=== PATIENT | female | born 1990 | race Caucasian/White ===

== ENCOUNTER 2024-07-18 08:03 | Outpatient (CLI) | payer OTHER, SELFPAY ==
--- NOTE | 2024-07-18 08:15 | CRLHL7_ITS ---
For Patients: As a result of the Cures Act, medical imaging exams and procedure reports are released immediately into your electronic medical record. You may view this report before your referring provider. If you have questions, please contact your health care provider. INDICATION: First trimester scan, establish dates. COMPARISON: None. TECHNIQUE: Real-time saha-scale imaging of the pelvis was performed. FINDINGS: Sonographic imaging demonstrates a single living intrauterine gestation. The embryo demonstrates a regular cardiac rate measuring 173 beats per minute. The embryo`s crown-rump length measurement of 2.6 cm corresponds to a gestational age of 9 weeks 3 days with a sonographic due date of 02/17/2025. There is a normal-appearing yolk sac. There are no gross abnormalities noted within the embryo at this early state of development. The gestational sac has a normal appearance. There is a 5 x 8 x 5 millimeter perigestational hemorrhage. The amount of fluid within the sac appears appropriate for gestational age. The cervix is closed. The myometrium appears normal. The ovaries are not visualized. There are no suspicious fluid collections noted in the cul-de-sac. IMPRESSION: Single living intrauterine with sonographic gestational age 9 weeks 3 days and a sonographic due date of 02/17/2025. Small subchorionic hemorrhage measuring 5 x 8 x 5 millimeters. Dictated by Aaron Card MD @ 07/18/2024 9:59:11 AM (Electronically Signed)
== END 2024-07-18 08:04 | disposition home or self-care (01) ==
LOC: US 08:04
PROVIDERS: Visit Provider Physician Assistant
DX: Z34.91 Encounter for supervision of normal pregnancy, unspecified, first trimester (principal); O20.9 Hemorrhage in early pregnancy, unspecified; Z3A.09 9 weeks gestation of pregnancy
CPT/HCPCS: 76801; 76817

== ENCOUNTER 2024-07-18 09:14 | Outpatient (CLI) | payer OTHER, SELFPAY | END 2024-07-18 09:15 | disposition home or self-care (01) | PROVIDERS: Visit Provider Physician Assistant | DX: Z34.81 Encounter for supervision of other normal pregnancy, first trimester (principal) | CPT/HCPCS: 86592; 86703; 86704; 86706; 86762; 86787; 86803; 86850; 86900; 86901; 87086; 87340 ==

== ENCOUNTER 2024-10-11 09:55 | Outpatient (CLI) | payer OTHER, SELFPAY ==
--- NOTE | 2024-10-11 10:15 | CRLHL7_ITS ---
For Patients: As a result of the Century Cures Act, medical imaging exams and procedure reports are released immediately into your electronic medical record. You may view this report before your referring provider. If you have questions, please contact your health care provider. INDICATION: Evaluate anatomy. COMPARISON: 07/18/2024 TECHNIQUE: Real time saha scale imaging of the fetus was performed as well as color Doppler analysis of the umbilical vessels. FINDINGS: Sonographic imaging demonstrates a single living intrauterine gestation. Fetus demonstrates a regular cardiac rate of 147 beats per minute. Fetus has a breech position. The placenta lies anteriorly without evidence of placenta previa. Edge of the placenta located 4.1 cm from the internal cervical os. Amniotic fluid volume appears normal. Single deepest vertical pocket: 4.5 cm. The cervix is closed and measures 4.3 cm in length. The composite ultrasound gestational age is calculated at 21 weeks 3 days with an estimated sonographic due date of 02/18/2025. The estimated weight is 428 grams which lies at the 40th %. The following biometric measurements were obtained: Biparietal diameter: 4.9 cm/21 weeks 0 days 24th% Head circumference: 18.8 cm/21 weeks 1 day 20th% Abdominal circumference: 17.1 cm/22 weeks 0 days 58th% Femur length: 3.5 cm/21 weeks 0 days 22nd% The HC/AC ratio measures: 1.10 range (1.06-1.24) On anatomic survey, there is a normal appearance of the cerebral ventricles, cavum septi pellucidi, cisterna magna and cerebellum. The nose, lips, and facial profile appear normal. The cervical, thoracic and lumbar spine are well visualized and appear normal. There is a normal four-chamber heart view and the left and right ventricular outflow tracts appear normal. The diaphragm and stomach appear normal. The kidneys and bladder also appear normal. There is a normal three-vessel cord and cord insertion site. The four extremities appear normal. IMPRESSION: Normal OB ultrasound exam with concordance of clinical and sonographic dating. No intrinsic abnormalities noted on anatomic survey. Dictated by Aaron Card MD @ 10/11/2024 11:36:25 AM (Electronically Signed)
== END 2024-10-11 09:56 | disposition home or self-care (01) ==
LOC: US 09:55
PROVIDERS: Visit Provider Advanced Practice Midwife
DX: Z34.92 Encounter for supervision of normal pregnancy, unspecified, second trimester (principal); Z3A.21 21 weeks gestation of pregnancy
CPT/HCPCS: 76805

== ENCOUNTER 2024-11-15 08:10 | Outpatient (CLI) | payer OTHER, SELFPAY | END 2024-11-15 08:11 | disposition home or self-care (01) | LOC: NFLDREF 08:11 | PROVIDERS: Visit Provider Advanced Practice Midwife | DX: Z34.92 Encounter for supervision of normal pregnancy, unspecified, second trimester (principal); Z3A.26 26 weeks gestation of pregnancy | CPT/HCPCS: 86592 ==

== ENCOUNTER 2025-01-17 10:26 | Outpatient (CLI) | payer OTHER, SELFPAY ==
[2025-01-18 15:01] LABS: Strep B DNA Probe Negative (Negative)
[2025-01-18 19:54] LABS: Strep B Susceptibility Needed? No
== END 2025-01-17 10:27 | disposition home or self-care (01) ==
LOC: NFLDREF 10:26
PROVIDERS: Visit Provider Midwife
DX: Z34.93 Encounter for supervision of normal pregnancy, unspecified, third trimester (principal); Z3A.35 35 weeks gestation of pregnancy
CPT/HCPCS: 87081; 87653

== ENCOUNTER 2025-02-06 23:37 | Inpatient (IN) | payer OTHER, SELFPAY ==
[2025-02-06 23:35] VITALS: BP 110/70; PULSE 88
[2025-02-06 23:45] VITALS: RESP 16; TEMP 36.6; BMI 31.7
--- NOTE | 2025-02-06 23:48 | W.PM.LDBA ---
Subjective History of Present Illness Date Seen: 02/06/25 Narrative: Patient is being admitted to Labor and Delivery for spontaneous onset of labor. She is a 34 year old at 38 3/7 weeks gestation. Her full history and physical was dictated by Veronika Durand CNM on 01/27/2025. Please see this for details. See below for specific issues Specific Issues/Plans : Caleb Son: Hubert. It is another boy! 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 States wasn't diagnosed with a hemorrhage. # Varicose Veins, right side but has small ones on left Painful at times Encouraged V-support, compression, ice packs, or tucks Imaging:? 1st trimester: 07/18/2024: ?Single living intrauterine with sonographic gestational age 9 weeks 3 days and a sonographic due date of 02/17/2025. Small subchorionic hemorrhage measuring 5 x 8 x 5 millimeters.?? Anatomy scan: 10/11/2024: Normal OB ultrasound exam with concordance of clinical and sonographic dating. No intrinsic abnormalities noted on anatomic survey.?? Flu: Declined COVID: Declined Tdap: Declined OB - Problem Based A/P Additional Plan (1) Spontaneous onset of labor: Status: Acute (2) Supervision of other normal : Status: Acute Plan ASSESSMENT:?? 34 at 38 3/7 weeks gestation?? complicated by:??Vulvar varicosities Labor type: Spontaneous, Early labor?? Category 1 FHR pattern.??? Labor complicated by: none?? GBS negative? PLAN:?? 1. Routine intrapartum cares as ordered. Continue with expectant management?? 2. Monitoring per policy, continuous 3. Planning medicated . Candidate for analgesia of choice.??? 4. Patient encouraged to reposition and ambulate to promote physiologic labor and .?? 5. Anticipate ? OB Result Labs Blood Type: O (+) positive Rubella: immune RPR/VDLR: nonreactive GBS Status: negative HBsAG: negative OB Exam Physical Exam Vital signs: Temp Pulse Resp BP 97.9 F 88 16 110/70 02/06/25 23:45 02/06/25 23:35 02/06/25 23:45 02/06/25 23:35 Narrative: Vitals Reviewed Constitutional:? Alert and oriented x3 HEENT:? Normocephalic, atraumatic Neck:? Supple Lungs:? Clear to auscultation bilaterally Heart:? Regular rate and rhythm, no murmur, rub or gallop Abdomen:? Soft, nontender, and gravid. Vertex by Sukhdev's, confirmed with cervical exam which I did in clinic earlier today. Extremities:? No edema or erythema Cervix: 5 cm/70%/-1 station/per nursing NST: 125 bpm/moderate variability/accelerations present/decelerations absent/contractions q 4 min palpating moderately
[2025-02-06] MEDS: LACTATED RINGERS 1000 ML 1,000 ML 1100 ML IV (23:55)
[2025-02-07] VITALS (66 sets, daily range): BP systolic 100–134; BP diastolic 56–84; PULSE 59–103; RESP 16–18; TEMP 36.5–36.9; O2SAT 97–100
[2025-02-07 00:02] LABS: Basophils Percent Auto 0.2 % (0.0-3.0); Hematocrit 38.7 % (33.0-51.0); Hemoglobin* 13.4 gm/dL (12.0-16.0); Immature Granulocytes Pct Auto 1.3 %; Lymphocytes Percent Auto 18.7 % (20-44); Mean Corpuscular HGB Conc 35 gm/dL (32-36); Mean Corpuscular Hemoglobin 32 pg (26-34); Mean Corpuscular Volume 91 fL (80-100); Monocytes Percent Auto 11.3 % (0.0-11.0); Neutrophils Percent Auto 67.5 % (42.0-72.0); Platelet Count* 252 K/uL (140-440); RDW Coefficient of Variation % 14.2 % (11.5-15.5); Red Blood Count 4.26 m/uL (4.00-5.20)
[2025-02-07 00:06] LABS: Slide Review Reflex No
[2025-02-07] MEDS: LIDOCAINE 2% (PF) 5 ML VIAL EPIDURAL (00:37)
[2025-02-07] MEDS: ROPIVACAINE 0.2% 100 ml 100 ML 12 MG EPIDURAL (00:47)
--- NOTE | 2025-02-07 00:56 | P.ANBPRC_ITS ---
[facility] Medical History Attention deficit disorder (05/31/10) ?F98.8 - Other specified behavioral and emotional disorders with onset usually occurring in childhood and adolescence (ICD-10) Spontaneous vaginal delivery (03/17/21) ?O80 - Encounter for full-term uncomplicated delivery (ICD-10) History of abnormal cervical Pap smear ?Z87.42 - Personal history of other diseases of the female genital tract (ICD-10) Surgical History History of wisdom tooth extraction ?K08.409 - Partial loss of teeth, unspecified cause, unspecified class (ICD- 10) Family History Mother Thyroid disease Aunt Thyroid disease Grandmother Ovarian cancer Osteoporosis Father Skin cancer Maternal Grandfather Lung cancer Paternal Grandfather Prostate cancer Paternal Grandmother Alzheimers disease Social History Narrative: Occupation: Did not indicate. Marital status: . Catholic/cultural needs: no. Chemical or radiation exposure: no. Pre- tobacco use: no. Pre- alcohol use: no. Current tobacco use: no. Current alcohol use: no. Recreational drug use: no. Dietary restrictions: no. Blood transfusion acceptable in an emergency: yes. PSYCHOSOCIAL HISTORY: History of depression or currently depressed: Denies. Current or past physical, emotional, or sexual mistreatment: Denies. Problems that will make it hard to make it to appointments: Denies. What is your current living situation?: I presently have a place to live Problems where you live: no known problems In the past 12 months, utilities in danger of being shut off: no In past 12 months, lack of transportation kept you from medical appts, meetings, work, or getting things needed for daily living: no In the past 12 mos, have been you worried that your food would run out before you had money to buy more?: never true In the past 12 mos, the food you bought just didn't last and you didn't have money to buy more?: never true Smoking Status: Never smoker How often does anyone, including family, friends and others, physically hurt you : never How often does anyone, including family, friends and others, insult or talk down to you: never How often does anyone, including family, friends and others, threaten you with harm: never How often does anyone, including family, friends and others, scream or curse at you: never Meds Home Medications and Allergies Home Medications ?Medication ?Instructions ?Recorded ?Confirmed ?Type [id number] 3-fat com #1 27 cap PO 07/18/24 02/06/25 History mg-1 mg-300 mg capsule Allergies Allergy/AdvReac Type Severity Reaction Status Date / Time amoxicillin Allergy Unknown Rash Verified 02/06/25 08:49 Penicillins Allergy Unknown Unknown Verified 02/06/25 08:49 Results Labs Labs: Laboratory Results - last 24 hr 02/06/25 23:55 WBC 13.50 H RBC 4.26 Hgb 13.4 Hct 38.7 MCV 91 MCH 32 MCHC 35 RDW Coeff of Ronnie 14.2 Plt Count 252 Neut % (Auto) 67.5 Lymph % (Auto) 18.7 L [place] % (Auto) 11.3 H Eos % (Auto) 1.0 Baso % (Auto) 0.2 Neut # (Auto) 9.10 H Lymph # (Auto) 2.50 [place] # (Auto) 1.50 H Eos # (Auto) 0.10 Baso # (Auto) 0.00 Abs Immat Gran (auto) 0.20 Imm/Tot Granulo (auto) 1.3 Vital Signs Vital Signs: Last Vital Signs Temp 97.9 F 02/06/25 23:45 Pulse 89 02/07/25 00:54 Resp 16 02/06/25 23:45 BP 115/68 02/07/25 00:54 Pulse Ox 99 02/07/25 00:54 Weight: 83.915 kg Height: 162.56 cm Anesthesia Procedures Epidural Insertion Patient Location: OB Start Time: 00:00 Stop Time: 01:00 Start Date: 02/07/25 Stop Date: 02/07/25 Reason for Block: procedure for pain Patient Position: sitting Performed By: Carol Ruiz Preanesthetic Checklist: IV checked, site marked, risks and benefits discussed, monitors and equipment checked, pre-op evaluation, timeout performed and anesthesia consent Prep: chlorhexidine gluconate Monitoring: blood pressure monitoring, continuous pulse oximetry and heart rate Approach: midline Vertebral Space: lumbar (1-5) Epidural Technique: RHODA saline Needle Type: Tuohy needle Injection Technique: continuous catheter Needle gauge: 17 Needle Length (cm): 10 cm Needle Insertion Depth (cm): 6 Catheter Gauge: 19 Catheter Type: multi-orifice Catheter at skin depth (cm): 15 Test Dose Result: negative and lidocaine 1.5% with epinephrine 1 to 200,000
[2025-02-07] MEDS: LACTATED RINGERS 1000 ML 1,000 ML 120 ML IV (01:02)
[2025-02-07] MEDS: ONDANSETRON 2 MG/ML inj 4 MG IV (01:24)
--- NOTE | 2025-02-07 01:46 | P.ANBPRC_ITS ---
[facility] Medical History Attention deficit disorder (05/31/10) ?F98.8 - Other specified behavioral and emotional disorders with onset usually occurring in childhood and adolescence (ICD-10) Spontaneous vaginal delivery (03/17/21) ?O80 - Encounter for full-term uncomplicated delivery (ICD-10) History of abnormal cervical Pap smear ?Z87.42 - Personal history of other diseases of the female genital tract (ICD-10) Surgical History History of wisdom tooth extraction ?K08.409 - Partial loss of teeth, unspecified cause, unspecified class (ICD- 10) Family History Mother Thyroid disease Aunt Thyroid disease Grandmother Ovarian cancer Osteoporosis Father Skin cancer Maternal Grandfather Lung cancer Paternal Grandfather Prostate cancer Paternal Grandmother Alzheimers disease Social History Narrative: Occupation: Did not indicate. Marital status: . Zoroastrianism/cultural needs: no. Chemical or radiation exposure: no. Pre- tobacco use: no. Pre- alcohol use: no. Current tobacco use: no. Current alcohol use: no. Recreational drug use: no. Dietary restrictions: no. Blood transfusion acceptable in an emergency: yes. PSYCHOSOCIAL HISTORY: History of depression or currently depressed: Denies. Current or past physical, emotional, or sexual mistreatment: Denies. Problems that will make it hard to make it to appointments: Denies. What is your current living situation?: I presently have a place to live Problems where you live: no known problems In the past 12 months, utilities in danger of being shut off: no In past 12 months, lack of transportation kept you from medical appts, meetings, work, or getting things needed for daily living: no In the past 12 mos, have been you worried that your food would run out before you had money to buy more?: never true In the past 12 mos, the food you bought just didn't last and you didn't have money to buy more?: never true Smoking Status: Never smoker How often does anyone, including family, friends and others, physically hurt you : never How often does anyone, including family, friends and others, insult or talk down to you: never How often does anyone, including family, friends and others, threaten you with harm: never How often does anyone, including family, friends and others, scream or curse at you: never Meds Home Medications and Allergies Home Medications ?Medication ?Instructions ?Recorded ?Confirmed ?Type [id number]-[id number]-omega 3-fat com #1 27 cap PO 07/18/24 02/06/25 History mg-1 mg-300 mg capsule Allergies Allergy/AdvReac Type Severity Reaction Status Date / Time amoxicillin Allergy Unknown Rash Verified 02/06/25 08:49 Penicillins Allergy Unknown Unknown Verified 02/06/25 08:49 Results Labs Labs: Laboratory Results - last 24 hr 02/06/25 23:55 WBC 13.50 H RBC 4.26 Hgb 13.4 Hct 38.7 MCV 91 MCH 32 MCHC 35 RDW Coeff of Ronnie 14.2 Plt Count 252 Neut % (Auto) 67.5 Lymph % (Auto) 18.7 L [place] % (Auto) 11.3 H Eos % (Auto) 1.0 Baso % (Auto) 0.2 Neut # (Auto) 9.10 H Lymph # (Auto) 2.50 [place] # (Auto) 1.50 H Eos # (Auto) 0.10 Baso # (Auto) 0.00 Abs Immat Gran (auto) 0.20 Imm/Tot Granulo (auto) 1.3 Blood Type O Positive Antibody Screen NEGATIVE Vital Signs Vital Signs: Last Vital Signs Temp 97.9 F 02/06/25 23:45 Pulse 81 02/07/25 01:45 Resp 16 02/06/25 23:45 BP 113/66 02/07/25 01:45 Pulse Ox 98 02/07/25 01:44 Weight: 83.915 kg Height: 162.56 cm Anesthesia Procedures Epidural Insertion Patient Location: OB Start Time: 01:00 Stop Time: 02:00 Start Date: 02/07/25 Stop Date: 02/07/25 Reason for Block: procedure for pain Patient Position: sitting Performed By: Carol Ruiz Preanesthetic Checklist: IV checked, risks and benefits discussed, surgical consent, monitors and equipment checked, pre-op evaluation, timeout performed and anesthesia consent Prep: chlorhexidine gluconate Monitoring: blood pressure monitoring, continuous pulse oximetry and heart rate Approach: midline Vertebral Space: lumbar (1-5) Epidural Technique: RHODA saline Needle Type: Tuohy needle Injection Technique: continuous catheter Needle gauge: 17 Needle Length (cm): 10 cm Needle Insertion Depth (cm): 7 Catheter Gauge: 19 Catheter Type: multi-orifice Catheter at skin depth (cm): 17 Test Dose Result: negative and lidocaine 1.5% with epinephrine 1 to 200,000
--- NOTE | 2025-02-07 02:18 | PM.OBPNL ---
Subjective Date Seen: 02/07/25 Narrative: Sudha is resting well and comfortable under epidural anesthesia. she is open to AROM. Caleb is supporting her at the bedside. Objective Exam: Objective: Constitutional: Alert and oriented x3, [mild/moderate/severe] distress, coping well Vital signs stable, see nurse documentation Abdomen: gravid, contractions palpate [mild/moderate/strong] with contractions and soft between Cervix: 9 cm/90%/0 station/vertex, AROM NST: 120 bpm/moderate variability/accelerations present/intermittent variable decelerations/q2-3min contractions Vital Signs: Last Vital Signs Temp 97.9 F 02/06/25 23:45 Pulse 88 02/07/25 02:14 Resp 16 02/06/25 23:45 BP 110/59 L 02/07/25 02:14 Pulse Ox 100 02/07/25 02:14 Plan Plan: ASSESSMENT:?? 34 at 38 4/7 weeks gestation?? complicated by:??Vulvar varicosities Labor type: Spontaneous, Early labor?? Category 2 FHR pattern.??? Labor complicated by: none?? GBS negative? PLAN:?? 1. Routine intrapartum cares as ordered. Continue with expectant management?? 2. Monitoring per policy, continuous 3. Continue epidural anesthesia 4. Patient encouraged to reposition and to promote physiologic labor and .?? 5. Anticipate ?
--- NOTE | 2025-02-07 03:38 | W.PM.OBVAGDE ---
OB Procedure Vag Delivery Mother Details Mother Details: The patient is a 34 year-old, 2, Para now 2001, admitted on 02/07/25 at Days gestation. Additional Details Heart: heart tones during second stage were [] Delivery Details Delivery Details: Delivered via [spontaneous] vaginal delivery. was placed on maternal abdomen.? Cord was clamped and cut after a 30-60 second delay. Nose and mouth were bulb suctioned.? weight pending. Event Summary Status: Mother and infant were stable after delivery.
--- NOTE | 2025-02-07 03:42 | W.PM.OBVAGDE ---
OB Procedure Vag Delivery Mother Details Mother Details: The patient is a 34 year-old, 2, now Para 2001, admitted on 02/06/25 at 38w 3 Days gestation. Additional Details Amniotic Membrane Status: AROM Amniotic Membrane Rupture Date: 02/07/25 Amniotic Membrane Rupture Time: 02:13 Amniotic Membrane Fluid Description: Clear Analgesia/Anesthesia Type: Epidural Waterbirth: No Pitcoin: No Intrapartal Events: None Labor Onset: 21:00 Complete: 02:51 Pushin:51 Heart: heart tones during second stage were category I. Delivery Details Delivery Date: 02/07/25 Delivery Time: 03:06 Route of delivery: Infant Gender: Male Viability: Alive; Heart Rate Present Position at Delivery: OA Delivery Details: Patient was admitted for spontaneous labor and progressed normally. AROM at 0213 with clear fluid. Patient was complete at 0251 and pushing at 0251. of a viable male at 0306 in [employer]. Vertex delivered OA. No nuchal cord or shoulder dystocia. Body delivered slowly and without incident. Infant passed to mothers abdomen with a vigorous cry. Cord was clamped and cut at approximately 3-4 minutes post . APGARS were 8 at one minute and 9 at five minutes respectively. Mouth was bulb suctioned. Intact placenta with a 3 vessel cord delivered spontaneously at 0319. Fundus firm. 2nd degree identified and repaired in typical fashion. QBL 200 cc. Mother and baby stable; mother plans to breastfeed. weight 8#1.8oz.? 1 Minute Interval Total Score: 8 5 Minute Interval Total Score: 9 Additional Details Shoulder Dystocia: No Placental Delivery Description: Spontaneous Delivery repair: Vicryl Procedure Done: Global Blood Loss: 200 Laceration: Perineal - 2nd Degree Episiotomy Description: None Blood Loss Measurement Type: QBL Bakri Used: No Sponge/Need Count Correct: Yes Cord Vessel Description: 3 Vessels Event Summary Status: Mother and infant were stable after delivery. Disposition: floor
[2025-02-07] MEDS: IBUPROFEN 600 MG TABLET PO ×2 (06:51→13:55)
[2025-02-07] MEDS: DOCUSATE SODIUM 100 MG CAPSULE PO (06:51)
[2025-02-07] MEDS: BENZOCAINE/MENTHOL SPRAY 85 GM AEROSOL 1 APPLIC TOPICAL (06:51)
--- NOTE | 2025-02-07 11:46 | PM.ANPOST ---
Post Anesthesia Note Post Anesthesia Note Patient seen: Inpatient Respiratory Status: adequate Cardiovascular Status: adequate Mental Status: baseline Pain: adequate Temp: baseline Anesthetic awareness: N/A Complications: none Follow care: none
[2025-02-08] MEDS: IBUPROFEN 600 MG TABLET PO ×2 (01:17→10:05)
[2025-02-08 01:50] VITALS: BP 111/69; PULSE 75; RESP 20; TEMP 36.8; O2SAT 98
[2025-02-08 06:18] LABS: Hemoglobin* 12.6 gm/dL (12.0-16.0)
[2025-02-08 10:00] VITALS: BP 115/75; PULSE 80; RESP 16; TEMP 36.4; O2SAT 96
--- NOTE | 2025-02-08 10:38 | PM.OBDSVD1 ---
DS: Providers Provider Date Seen: 02/08/25 Date of admission: 02/07/25 00:01 Primary care physician: Not a Local Provider Admitting Clinician: Gisela Awad CNM Attending Physician on discharge: Salena Durand CNM DS: Diagnosis Discharge Diagnosis (1) care and examination immediately after delivery: Status: Acute (2) Varicosities of vulva: Status: Acute (3) Lactating mother: Status: Acute Exam Narrative: Exam Narrative: GENERAL APPEARANCE:? normal affect, alert, no distress MOOD:? appropriate CHEST:? clear to auscultation HEART:? regular rate and rhythm ABDOMEN:? soft, non-tender the uterine fundus is At Umbilicus, Midline and is appropriate for the stage of recovery. PERINEUM:? mild edema of the perineum, there is a Perineal Laceration,?2nd degree that is healing well. EXTREMITIES:? normal and no edema Const: Vital Signs, click to edit/add: Vital Signs - 24 hr 02/07/25 12:22 02/07/25 15:54 02/07/25 20:24 Temperature 97.9 F 97.7 F 97.8 F Pulse Rate [Pulse Oximeter] 65 59 L 80 Respiratory Rate 18 16 16 Blood Pressure [Ri ght Arm] 100/61 107/61 112/63 Pulse Oximetry 98 98 98 Oxygen Delivery Me thod Room Air Room Air Room Air 02/08/25 01:50 02/08/25 10:00 Temperature 98.3 F 97.5 F L Pulse Rate [Pulse Oximeter] 75 80 Respiratory Rate 20 16 Blood Pressure [Ri ght Arm] 111/69 115/75 Pulse Oximetry 98 96 Oxygen Delivery Me thod Room Air Room Air Documenting provider has reviewed patient's vital signs: yes OB - DS: Summary Hospital Course Hospital Course: Sudha is a 34 y.o. G 2 P 2 who was admitted to [facility] for spontaneous onset of labor. ?She had a NVD that was uncomplicated. The patient feels well. ?The pain is well controlled with current medications. ?She has no new complaints. ?She is breast feeding and reports things are going well. the patient has done well.? Vitals have been stable.? She has remained afebrile.? Has a good appetite, is tolerating a general diet. ?She is voiding without difficulty.? She is passing gas and has not had a bowel movement.? She is ambulating and denies any dizziness.? Has small amount of rubra lochia. Problems: none Discharge home with baby.? Follow up in 2 weeks and 6 weeks.? , may see if needed? Hgb 12.6. ?? For pain control of perineum, breast and pelvic pain, take 600 mg Ibuprofen every 6 hours as needed by mouth or 1000 mg acetaminophen (Tylenol) every 6 hours by mouth as needed. You can alternate these so you are taking something every 3 hours as needed. A heating pad can also be used for your abdomen or breasts. You may also take docusate sodium up to twice daily to soften your stools and help to prevent constipation. You may wean off of it when your stools return to normal.? Peripartum Data Infant delivery method: Vaginal Laceration description: Perineal - 2nd Degree complications: none [place] Infant Gender: Male Discharge Plan: Home Status at Discharge Functional status at discharge: independent ambulation Overall status at discharge: patient is progressing back to baseline Time Spent with Patient Time attestation: Total time spent providing and/or coordinating discharge services: Time spent: Less than 30 minutes Discharge Plan Discharge Disposition: Home, Self-Care Date of Admission: 02/07/25 00:01 Attending Provider on Discharge: Salena Durand Primary Care Provider: Provider,Not a Local Condition: Stable Anticipated Discharge Date/Time: 02/08/25 12:00 Discharge Medications: New docusate sodium 100 mg Capsule 100 mg PO DAILY Qty: 60 0RF ibuprofen 600 mg Tablet 600 mg PO Q6H PRNQty: 60 0RF acetaminophen 500 mg Tablet 1,000 mg PO Q6H PRN (Reason: pain/fever) Qty: 0 0RF Continued [id number]-cdkc-[id number]-omega 3-fat com #1 27-1-300 mg capsule 1 cap PO DAILY Discharge Orders: Discharge Order (Routine); Ordered 02/08/25 Ordered By: Salena Durand Patient Education: OB Over the Counter Medication Information, OB Vaginal/Breast Feeding Additional Instructions: Discharge instructions were reviewed with the patient including signs and symptoms of infection and home going medications Nothing vaginally for 6 weeks: no tampons or intercourse Off Work or School for 6 weeks 2-week visit: discuss infant feeding concerns, review control options and screen for anxiety/depression. 6-week visit for an annual exam. consultation services are available to all mothers and babies for the first year after delivery.? To make an appointment, please call [phone]. Activity Level: Activity as Tolerated Discharge Diet: Regular Follow Up Appointments: [facility] [Provider Group] Forms: [employer] Info Instructions
[2025-02-08 11:49] LABS: Rapid Plasma Reagin (RPR) Non Reactive (Non Reactive)
== END 2025-02-08 11:31 | disposition home or self-care (01) | DRG 807 ==
LOC: OB 02-08 10:40 → OB OUT 02-17 12:59 → OB 02-17 13:00
PROVIDERS: Admitting Provider Midwife; Visit Provider Midwife
DX: O22.13 Genital varices in pregnancy, third trimester (principal); Z37.0 Single live birth; O70.1 Second degree perineal laceration during delivery; O99.344 Other mental disorders complicating childbirth; F98.8 Other specified behavioral and emotional disorders with onset usually occurring in childhood and adolescence; Z3A.38 38 weeks gestation of pregnancy
CPT/HCPCS: 01967; 36415; 85018; 85025; 86592; 86850; 86900; 86901; 94761; G0463; A9270; J2371; J2405; J2795; J7120